=== PATIENT | male | born 1980 | race Caucasian/White ===

== ENCOUNTER 2018-06-30 19:10 | Emergency (ER) | payer BC ==
[2018-06-30 19:11] VITALS: O2SAT 97
[2018-06-30 19:19] VITALS: PULSE 88
[2018-06-30] MEDS ORDERED: BACITRACIN 500 U/GM OIN TOP ONE ×2 (19:27)
[2018-06-30] MEDS ORDERED: KETOROLAC TROMETHAMINE 30 MG/ML SOL IM ONE (19:40)
[2018-06-30] MEDS ORDERED: KETOROLAC TROMETHAMINE 30 MG/ML SOL ONE (19:41)
[2018-06-30 20:06] VITALS: BP 132/78
== END 2018-06-30 19:53 | disposition home or self-care (01) ==
LOC: ED 19:10
DX: S61.210A Laceration without foreign body of right index finger without damage to nail, initial encounter (principal); S61.212A Laceration without foreign body of right middle finger without damage to nail, initial encounter; S61.214A Laceration without foreign body of right ring finger without damage to nail, initial encounter; W31.89XA Contact with other specified machinery, initial encounter
CPT/HCPCS: 96372; 99282; 99283; J1885; A9270-GY